=== PATIENT | female | born 1980 | race Caucasian/White ===

== ENCOUNTER → 2018-01-03 | Outpatient (CLI) | payer MEDICAID ==
[~2018-01-03] MED LIST: SUMA4PEN2 SQ; ZOLP10TA PO; [UNRECOGNIZED DRUG - OTHER] PO
[2018-01-03 09:26] LABS: BASOPHILS # (AUTO) 0.05 x10^3/uL (0-0.1); BASOPHILS % (AUTO) 1 % (0-1); EOSINOPHILS # (AUTO) 0.29 x10^3/uL (0-0.4); EOSINOPHILS % (AUTO) 4 % (1-7); LYMPHOCYTES # (AUTO) 1.69 x10^3/uL (1-3.4); LYMPHOCYTES % (AUTO) 23 % (22-44); MD NO; MEAN CORPUSCULAR HEMOGLOBIN 30.7 pg (27.0-34.8); MEAN CORPUSCULAR HGB CONC 33.4 g/dL (32.4-35.8); MEAN PLATELET VOLUME 9.8 fL (7.4-10.4); MONOCYTES # (AUTO) 0.39 x10^3/uL (0.2-0.8); MONOCYTES % (AUTO) 5 % (2-9); NEUTROPHILS # (AUTO) 5.03 x10^3/uL (1.8-6.8); NEUTROPHILS % (AUTO) 68 % (42-75); PLATELET COUNT 261 x10^3/uL (130-400); RED CELL DISTRIBUTION WIDTH 13.2 % (9.6-15.2)
[2018-01-03 09:31] LABS: ALANINE AMINOTRANSFERASE 29 U/L (12-78); ALBUMIN 3.5 g/dL (3.4-5.0); ANION GAP 7 mmol/L (5-15); CALCIUM 8.7 mg/dL (8.5-10.1); CHLORIDE 106 mmol/L (98-107); CHOLESTEROL, TOTAL 201 mg/dL (140-239); CREATININE 0.76 mg/dL (0.55-1.02); TRIGLYCERIDES 140 mg/dL (50-200); VLDL CHOLESTEROL 28 mg/dL (0-25)
[2018-01-03 09:41] LABS: ALKALINE PHOSPHATASE 76 U/L (45-117); BILIRUBIN,TOTAL 0.3 mg/dL (0.2-1.0); HDL CHOL % 25 % (28-40); HDL CHOLESTEROL (DIRECT) 50 mg/dL (40-60); LDL CHOLESTEROL,CALCULATED 123 mg/dL (54-169); LDL/HDL RATIO 2.5 (0.5-3.0); TOTAL PROTEIN 7.8 g/dL (6.4-8.2)
== END | disposition home or self-care (01) ==
LOC: STAR 08:22
PROVIDERS: ATTEND Specialist
DX: Z01.818 Encounter for other preprocedural examination (principal); R10.2 Pelvic and perineal pain; Z88.1 Allergy status to other antibiotic agents
CPT/HCPCS: 36415; 80053; 80061; 84443; 85025

== ENCOUNTER 2018-01-15 08:05 | Observation (INO) | payer MEDICAID ==
[~2018-01-15] VITALS: Ht 167.6 cm; Wt 107.7 kg
[2018-01-15 08:35] VITALS: BP 124/82
[2018-01-15] MEDS ORDERED: LACTATED RINGERS 1,000 ML IV SCH (08:39)
[2018-01-15] MEDS ORDERED: NEOSTIGMINE 1 MG/ML, 10ML ONE (10:26)
[2018-01-15] MEDS ORDERED: KETOROLAC 30 MG/1 ML ONE ×2 (10:26→15:16)
[2018-01-15] MEDS ORDERED: METOCLOPRAMIDE 5 MG/ML, 2ML ONE (10:26)
[2018-01-15] MEDS ORDERED: ONDANSETRON 2MG/ML, 2ML ONE ×2 (10:26)
[2018-01-15] MEDS ORDERED: PROPOFOL 10 MG/ML, 20ML ONE (10:26)
[2018-01-15] MEDS ORDERED: ROCURONIUM 10 MG/ML,10ML ONE (10:26)
[2018-01-15] MEDS ORDERED: CEFAZOLIN 1,000 MG ONE (10:26)
[2018-01-15] MEDS ORDERED: GLYCOPYRROLATE 0.2MG/1ML, 5ML ONE (10:26)
[2018-01-15] MEDS ORDERED: GENTIAN VIOLET SOLN 2% 60 ML TP ONE (10:50)
[2018-01-15] MEDS: HYDROmorphone 1 MG/ML, 1ML IV PRN ×4 (12:31→13:09)
[2018-01-15] MEDS ORDERED: OXYcodone 5 MG/5 ML ORAL.SOL UDC ONE (12:36)
[2018-01-15] MEDS ORDERED: HYDROmorphone 2 MG/ML, 1ML ONE (12:36)
[2018-01-15] MEDS ORDERED: MORPHINE SULFATE 4 MG/ML, 1ML IVPush PRN (13:00)
[2018-01-15] MEDS ORDERED: ALBUTEROL SULFATE 2.5 MG/3 ML NPPB PRN (13:00)
[2018-01-15] MEDS ORDERED: MEPERIDINE/PF 25MG/0.5ML IVPush PRN (13:00)
[2018-01-15] MEDS ORDERED: PROMETHAZINE 25 MG/ML, 1ML IV PRN (13:00)
[2018-01-15] MEDS ORDERED: LABETALOL 5MG/ML, 20ML IV PRN (13:00)
[2018-01-15] MEDS ORDERED: OXYcodone 5 MG/5 ML ORAL.SOL UDC PO PRN (13:00)
[2018-01-15] MEDS ORDERED: FENTANYL PF 100 MCG/2ML IV PRN (13:00)
[2018-01-15] MEDS ORDERED: ONDANSETRON 2MG/ML, 2ML IV PRN ×2 (13:00→16:00)
[2018-01-15] MEDS ORDERED: MIDAZOLAM 1 MG/ML, 2ML IV PRN (13:00)
[2018-01-15] MEDS ORDERED: hydrALAzine 20 MG/ML, 1ML IV PRN (13:00)
[2018-01-15] MEDS ORDERED: MEPERIDINE/PF 50 MG/ML ONE (13:14)
[2018-01-15 14:00] VITALS: BP 120/67
[2018-01-15] MEDS ORDERED: MEPERIDINE/PF 100 MG/ML IM PRN (16:00)
[2018-01-15] MEDS: HYDROmorphone 2 MG/ML, 1ML IV PRN ×2 (16:01→20:05)
[2018-01-15] MEDS: SIMETHICONE 80 MG CHEW TAB PO SCH ×2 (16:01→20:05)
[2018-01-15] MEDS: KETOROLAC 30 MG/1 ML IV SCH (17:56)
[2018-01-15] MEDS: OXYcodone/APAP 5/325MG TABLET PO PRN ×2 (17:56→22:11)
[2018-01-15] MEDS: POTASSIUM CHLORIDE 20 MEQ in D5%-LACTATED RINGERS 1,000 ML IV SCH (17:56)
[2018-01-15] MEDS: CEFAZOLIN 2,000 MG in SODIUM CHLORIDE 0.9% 50 ML IVPB SCH (18:45)
[2018-01-15 20:30] VITALS: BP 121/70
[2018-01-15] MEDS ORDERED: NICOTINE 7 MG/24 HR PATCH.TD24 TD SCH (21:00)
[2018-01-16 00:07] VITALS: BP 109/70
[2018-01-16] MEDS: KETOROLAC 30 MG/1 ML IV SCH ×3 (00:10→11:42)
[2018-01-16] MEDS: CEFAZOLIN 2,000 MG in SODIUM CHLORIDE 0.9% 50 ML IVPB SCH (02:18)
[2018-01-16] MEDS: OXYcodone/APAP 5/325MG TABLET PO PRN ×4 (02:18→14:16)
[2018-01-16] MEDS: POTASSIUM CHLORIDE 20 MEQ in D5%-LACTATED RINGERS 1,000 ML IV SCH ×2 (02:18→10:10)
[2018-01-16 04:11] VITALS: BP 102/66
[2018-01-16] MEDS: HYDROmorphone 2 MG/ML, 1ML IV PRN ×2 (04:32→07:52)
[2018-01-16] MEDS: SIMETHICONE 80 MG CHEW TAB PO SCH (07:52)
[2018-01-16 08:07] VITALS: BP 93/60
[2018-01-16 14:14] VITALS: BP 107/73
[2018-01-16] MEDS ORDERED: IBUP200T49 PO (15:01)
[2018-01-16] MEDS ORDERED: OXYC-302 PO (15:02)
[2018-01-16] MEDS ORDERED: IBUPROFEN 600 MG TABLET PO SCH (16:00)
== END 2018-01-16 15:27 | disposition home or self-care (01) ==
LOC: ORIP 08:05 → INTOOBSV 08:05 → 4NOR 13:45 → DCLOUNGE 01-16 15:19
PROVIDERS: ADMIT Specialist; ATTEND Specialist
DX: D25.9 Leiomyoma of uterus, unspecified (principal); N92.0 Excessive and frequent menstruation with regular cycle; N94.6 Dysmenorrhea, unspecified; H26.499 Other secondary cataract, unspecified eye; F17.200 Nicotine dependence, unspecified, uncomplicated; Z98.891 History of uterine scar from previous surgery; Z88.8 Allergy status to other drugs, medicaments and biological substances; Z83.3 Family history of diabetes mellitus; Z82.49 Family history of ischemic heart disease and other diseases of the circulatory system
CPT/HCPCS: 36415; 58150; 85014; 85018; 86850; 86900; 88307; 96365; 96366; 96375; 96376; G0378; J0690; J1170; J1885; J2175; J2250; J2405; J2704; J2710; J2765; J3010; J3480; J3490; J7120; J7121

== ENCOUNTER 2018-01-26 15:11 | Emergency (ER) | payer MEDICAID ==
[~2018-01-26] VITALS: Ht 167.6 cm; Wt 109.3 kg
[~2018-01-26 15:11] MED LIST changes: +IBUP200T49 PO; +OXYC-302 PO
[2018-01-26 15:15] VITALS: BP 153/93
[2018-01-26 15:42] LABS: BASOPHILS # (AUTO) 0.02 x10^3/uL (0-0.1); BASOPHILS % (AUTO) 0 % (0-1); EOSINOPHILS % (AUTO) 4 % (1-7); LYMPHOCYTES # (AUTO) 2.89 x10^3/uL (1-3.4); LYMPHOCYTES % (AUTO) 28 % (22-44); MD NO; MEAN CORPUSCULAR HEMOGLOBIN 30.6 pg (27.0-34.8); MEAN CORPUSCULAR VOLUME 92.9 fL (80-100); MONOCYTES # (AUTO) 0.34 x10^3/uL (0.2-0.8); MONOCYTES % (AUTO) 3 % (2-9); NEUTROPHILS # (AUTO) 6.53 x10^3/uL (1.8-6.8); NEUTROPHILS % (AUTO) 64 % (42-75); PLATELET COUNT 329 x10^3/uL (130-400); RED BLOOD COUNT 4.96 x10^6/uL (3.82-5.3); RED CELL DISTRIBUTION WIDTH 13.3 % (9.6-15.2)
[2018-01-26 15:50] LABS: ALBUMIN 3.6 g/dL (3.4-5.0); ANION GAP 6 mmol/L (5-15); CALCIUM 8.6 mg/dL (8.5-10.1); CHLORIDE 109 mmol/L (98-107); CREATININE 0.67 mg/dL (0.55-1.02)
[2018-01-26 16:36] LABS: MICROSCOPIC AUTO
[2018-01-26 16:38] LABS: CULTURE INDICATED? YES
== END 2018-01-26 17:04 | disposition home or self-care (01) ==
LOC: ED 16:55
DX: N30.01 Acute cystitis with hematuria (principal); B37.2 Candidiasis of skin and nail
CPT/HCPCS: 36415; 80048; 81001; 82040; 85025; 87086; 99284

== ENCOUNTER → 2020-05-28 | Outpatient (CLI) | payer OTHER ==
[~2020-05-28] MED LIST changes: +OMNIPAQUE 350 MG/ML, 75ML BOTTLE ONE; -OXYC-302 PO; +OXYC1TAB14 PO
== END | disposition home or self-care (01) ==
LOC: RAD 12:59
PROVIDERS: ATTEND Nurse Practitioner Family
DX: R22.2 Localized swelling, mass and lump, trunk (principal)
CPT/HCPCS: 74177; Q9967